=== PATIENT | female | born 1965 | race Caucasian/White ===

== ENCOUNTER 2017-02-10 12:12 | Observation (INO) | payer OTHER ==
[~2017-02-10] VITALS: Ht 162.6 cm; Wt 74.6 kg
[2017-02-10 12:40] LABS: POINT-OF-CARE METER ID UU13113702
[2017-02-10 13:45] LABS: ADD MIUA? YES; BILIRUBIN NEGATIVE; BLOOD NEGATIVE; COLOR YELLOW ((YELLOW)); GLUCOSE (STRIP) NEGATIVE; KETONES 20; LEUKOCYTES LARGE; NITRITE NEGATIVE; PROTEIN (STRIP) NEGATIVE; SPECIFIC GRAVITY 1.017 (1.000-1.030); UROBILINOGEN 0.2 MG/DL (0.2-1.0)
[2017-02-10 13:55] LABS: EOSINOPHIL (%) 1.8 % (0-5); EOSINOPHIL COUNT 0.1 K/uL (0-0.3); HEMATOCRIT 35.8 % (36.0-46.0); IMMATURE GRANULOCYTE (%) 0.2 % (0.0-0.7); LYMPHOCYTE COUNT 0.9 K/uL (1.0-2.8); MCH 28.6 PG (29.0-34.0); MCHC 32.4 G/DL (30.0-36.0); MCV 88.2 FL (83-99); MONOCYTE COUNT 0.4 K/uL (0-0.8); NEUTROPHIL (%) 67.6 % (45-76); PLATELET COUNT 241 K/uL (156-360); RBC DIS.WIDTH-CV 13.4 % (11.8-14.6); RBC DIS.WIDTH-SD 43.9 % (39-53); RED BLOOD COUNT 4.06 M/uL (3.80-5.20); WHITE BLOOD COUNT 4.4 K/uL (4.1-10.2)
[2017-02-10 14:01] LABS: INTER. NORMALIZED RATIO 1.1; PROTHROMBIN TIME 11.4 (9.2-11.2)
[2017-02-10 14:03] LABS: BACTERIA RARE /HPF; EPITHELIAL CELLS 1+ /HPF; MUCUS TRACE /LPF; RED BLOOD CELLS 0-5 /HPF (0-5); UCUL ADDED? YES; WHITE BLOOD CELLS TNTC /HPF (0-5)
[2017-02-10 14:10] LABS: CHLORIDE 108 mEq/L (99-109); SODIUM 140 mEq/L (136-147)
[2017-02-10 14:12] LABS: GLUCOSE 99 mg/dL (70-99)
[2017-02-10 14:13] LABS: ANION GAP 10 MEQ/L (2-14)
[2017-02-10 14:14] LABS: TOTAL BILIRUBIN 0.5 mg/dL (0.0-1.0)
[2017-02-10 14:15] LABS: ALKALINE PHOSPHATASE 51 IU/L (3-129)
[2017-02-10 14:16] LABS: GFR ESTIMATE (CALCULATED) > 59 mL/min/
[2017-02-10 14:16] LABS: AMPHETAMINE NEGATIVE (500 ng/mL); BARBITURATES NEGATIVE (200 ng/mL); BENZODIAZEPINES NEGATIVE (150 ng/mL); COCAINE NEGATIVE (150 ng/mL); INTERNAL CONTROLS VALID? YES; METHADONE NEGATIVE (200 ng/mL); METHAMPHETAMINE NEGATIVE (500 ng/mL); OPIATES (MORPHINE) NEGATIVE (100 ng/mL); OXYCODONE NEGATIVE (100 ng/mL); PHENCYCLIDINE NEGATIVE (25 ng/mL); PROPOXYPHENE NEGATIVE (300 ng/mL); THC CANNABINOIDS NEGATIVE (50 ng/mL); TRICYCLIC ANTIDEPRESSANTS PRESUMPTIVE POSITIVE (300 ng/mL)
[2017-02-10 14:17] LABS: UREA NITROGEN (BUN) 20 mg/dL (9-23)
[2017-02-10 14:20] LABS: TROP-I INTERPRETATION NEGATIVE; TROPONIN-I < 0.01 ng/mL (0.0-0.30)
[2017-02-10] MEDS ORDERED: EXCEDRIN EXTRA1 EACH PO (15:01)
[2017-02-10] MEDS ORDERED: ADVIL200 MG PO (15:01)
[2017-02-10 16:38] VITALS: BP 130/68
[2017-02-10 19:34] VITALS: BP 118/62
[2017-02-10 23:22] VITALS: BP 131/67
[2017-02-11 04:45] VITALS: BP 106/69
[2017-02-11 06:41] LABS: HDL CHOLESTEROL 44 MG/DL (Desirable>=50); LDL CHOLESTEROL 125 mg/dL (Desirable<100); NON-HDL CHOLESTEROL 143 mg/dL (Desirable<160); TOTAL CHOLESTEROL 187 mg/dL (Desirable<200); TRIGLYCERIDES 89 MG/DL (Normal: <150)
[2017-02-11 07:05] VITALS: BP 152/67
[2017-02-11 07:18] LABS: Estimated Average Glucose 128 mg/dL (70-123); HEMOGLOBIN A1c (GLYCOHEMOGLOB) 6.1 % HGB (Below 5.7)
== END 2017-02-11 09:25 | disposition home or self-care (01) ==
LOC: EME 12:12 → EDOF 14:34 → 5WEST 14:34
PROVIDERS: Emergency Medicine; Hospitalist
DX: R41.82 Altered mental status, unspecified (principal); R47.81 Slurred speech; T37.5X5A Adverse effect of antiviral drugs, initial encounter
CPT/HCPCS: 70450; 70551; 71010; 80053; 80061; 81003; 82948; 83036; 84484; 85025; 85610; 85730; 87086; 93005; 99281; 99285; G0378; J0696; J7030; J7050